=== PATIENT | female | born 1995 | race African-American/Black ===

== ENCOUNTER 2017-06-30 23:01 | Emergency (ER) | payer OTHER ==
[~2017-06-30] VITALS: Ht 157.5 cm; Wt 115.8 kg
[2017-06-30 23:07] VITALS: TEMP 36.7; Ht 157.5 cm; Wt 115.8 kg
--- NOTE | 2017-06-30 23:29 | EMERGENCY ROOM VISIT NOTE ---
History Report prepared by Nora: Jami Gandhi Under the Supervision of: Dr. Josh Lundberg M.D. First contact with patient: 23:14 Chief Complaint: PELVIC PAIN Stated Complaint: PAIN IN UTERINE AREA History of Present Illness The patient is a 22 year old female who presents to the Emergency Room with complaints of waxing and waning uterine pain beginning an hour and a half ago. The patient reports that the pain came on suddenly and she describes the pain as a stabbing sensation. She denies having nausea, vomiting, fevers, diarrhea, abdominal pain, and leg swelling. The patient reports that her last menstrual cycle was last week and denies any chance of and sexually transmitted diseases. She also denies recent injuries and vaginal bleeding. She reports that she took 3 tablets of ibuprofen prior to arrival. The patient states that she is on Metformin because she is diabetic and states that her sugars have been in the 200's lately. The patient also reports that she has PCOS. Source of History: patient Onset: an hour and a half ago Position: other (uterus ) Quality: stabbing Timing: waxes/wanes Associated Symptoms: No fevers, No nausea, No vomiting, No abdominal pain, No diarrhea Note: also denies: leg swelling, vaginal bleeding Review of Systems See HPI for pertinent positives & negatives. A total of 10 systems reviewed and were otherwise negative. Past Medical & Surgical Medical Problems: (1) Diabetes (2) PCOS (polycystic ovarian syndrome) Family History No pertinent family history Social History Smoking Status: Never Smoker Housing Status: lives with roommate Occupation Status: [employer] student Current/Historical Medications Scheduled Metformin Hcl (Glucophage), 500 MG PO DAILY Allergies Coded Allergies: No Known Allergies (Unverified , 07/01/17) Physical Exam Vital Signs Date Time Temp Pulse Resp B/P (MAP) Pulse Ox O2 Delivery O2 Flow Rate FiO2 07/01/17 02:48 79 18 130/71 98 06/30/17 23:07 36.7 84 16 153/90 99 Room Air Physical Exam GENERAL: Patient is well appearing and in no acute distress. HEENT: No acute trauma, normocephalic atraumatic, mucous membranes moist, no nasal congestion, no scleral icterus. NECK: No stridor, no adenopathy, no meningismus, trachea is midline. LUNGS: No dyspnea. Clear to auscultation and equal bilaterally. No wheeze, no rhonchi. HEART: Regular rate and rhythm. No murmurs, rubs, gallops appreciated. ABDOMEN: Soft, mild suprapubic tenderness to palpation, bowel sounds positive, no masses appreciated, no peritonitis. BACK: No midline tenderness, no CVA tenderness EXTREMITIES: Normal motion all extremities, no cyanosis, no edema. NEUROLOGIC: Alert and oriented, no acute motor or sensory deficits, no focal weakness, cranial nerves grossly intact. SKIN: No rash, no jaundice, no diaphoresis. PELVIC: Scant off-white discharge throughout the posterior vaginal wall. Able to visualize bottom portion of cervix which appears unremarkable. Did not visualize strings of IUD, however could not see os. Mild tenderness to palpation over left lower quadrant on bimanual exam. Medical Decision & Procedures ER Provider Diagnostic Interpretation: Radiology results and stated below per my review and [facility]. US PELVIC/ENDOVAG IUD is identified in the lower endometrial cavity. Recommended clinical correlation. Endometrial stripe is within normal limits. No fibroids. Thick- walled cyst in the left ovary with lacelike pattern and peripheral vascularity likely represents a hemorrhagic cyst measuring 3.2 cm. There are small rounded nodules which could represent retracting clot. Recommend follow-up in 6-12 weeks to assess for interval resolution and to exclude endometrioma. No evidence of left ovarian torsion. Normal right ovary. Bladder wall thickening may be related to incomplete distention. Correlate with urinalysis to exclude cystitis. Laboratory Results 06/30/17 23:40 Red Blood Count 4.52, Mean Corpuscular Volume 77.4, Mean Corpuscular Hemoglobin 26.3, Mean Corpuscular Hemoglobin Concent 34.0, Mean Platelet Volume 8.6, Neutrophils (%) (Auto) 46.5, Lymphocytes (%) (Auto) 42.2, Monocytes (%) (Auto) 6.8, Eosinophils (%) (Auto) 3.2, Basophils (%) (Auto) 1.1, Neutrophils # (Auto) 2.60, Lymphocytes # (Auto) 2.36, Monocytes # (Auto) 0.38, Eosinophils # (Auto) 0.18, Basophils # (Auto) 0.06 06/30/17 23:40 Test 06/30/17 23:40 07/01/17 01:36 White Blood Count 5.59 K/uL (4.8-10.8) Red Blood Count 4.52 M/uL (4.2-5.4) Hemoglobin 11.9 g/dL (12.0-16.0) Hematocrit 35.0 % (37-47) Mean Corpuscular Volume 77.4 fL (80-100) Mean Corpuscular Hemoglobin 26.3 pg (25-34) Mean Corpuscular Hemoglobin Concent 34.0 g/dl (32-36) Platelet Count 261 K/uL (130-400) Mean Platelet Volume 8.6 fL (7.4-10.4) Neutrophils (%) (Auto) 46.5 % Lymphocytes (%) (Auto) 42.2 % Monocytes (%) (Auto) 6.8 % Eosinophils (%) (Auto) 3.2 % Basophils (%) (Auto) 1.1 % Neutrophils # (Auto) 2.60 K/uL (1.4-6.5) Lymphocytes # (Auto) 2.36 K/uL (1.2-3.4) Monocytes # (Auto) 0.38 K/uL (0.11-0.59) Eosinophils # (Auto) 0.18 K/uL (0-0.5) Basophils # (Auto) 0.06 K/uL (0-0.2) RDW Standard Deviation 37.9 fL (36.4-46.3) RDW Coefficient of Variation 13.4 % (11.5-14.5) Immature Granulocyte % (Auto) 0.2 % Immature Granulocyte # (Auto) 0.01 K/uL (0.00-0.02) Urine Color YELLOW Urine Appearance CLEAR (CLEAR) Urine pH 7.0 (4.5-7.5) Urine Specific [place] 1.018 (1.000-1.030) Urine Protein NEG (NEG) Urine Glucose (UA) NEG (NEG) Urine Ketones NEG (NEG) Urine Occult Blood NEG (NEG) Urine Nitrite NEG (NEG) Urine Bilirubin NEG (NEG) Urine Urobilinogen NEG (NEG) Urine Leukocyte Esterase NEG (NEG) Urine WBC (Auto) 1-5 /hpf (0-5) Urine RBC (Auto) 0-4 /hpf (0-4) Urine Hyaline Casts (Auto) 0 /lpf (0-5) Urine Epithelial Cells (Auto) 20-30 /lpf (0-5) Urine Bacteria (Auto) NEG (NEG) Urine Test NEG (NEG) Anion Gap 8.0 mmol/L (3-11) Est Creatinine Clear Calc Drug Dose 104.1 ml/min Estimated GFR () 89.6 Estimated GFR (Non- 77.3 BUN/Creatinine Ratio 11.5 (10-20) Calcium Level 8.5 mg/dl (8.5-10.1) Laboratory results as reviewed by me. ED Course 2317: The patient was evaluated in room B11B. A complete history and physical exam was performed. 0227: Reevaluated the patient. She feels good and would like to go home. 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 Discussed results and discharge instructions: She verbalized understanding and agreement. The patient is ready for discharge. Medical Decision Differential: Appendicitis, Ovarian Torsion, Ovarian cyst/rupture, PID, Tubo- ovarian Abscess, Intrauterine , Ectopic , Endometriosis, amongst other pathologies entertained. 22 yr old female arrives for evaluation of acute onset lower pelvic pain which has been improving since motrin use. Exam with some scant discharge in vaginal vault. 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 Pain essentially resolved. Labs OK. UA clear. Not . US shows left ovarian cyst likely hemorrhagic. She has no peritonitis, knows of chronic anemia, and has stable vitals. NSAID treatment and follow up with [employer] as planned in 1 week. Reviewed symptoms requiring RTED. Medication Reconcilliation Current Medication List: was personally reviewed by me Blood Pressure Screening Patient's blood pressure: Elevated blood pressure Blood pressure disposition: Referred to PCP Impression Primary Impression: Hemorrhagic cyst of left ovary Additional Impressions: Anemia Hypertension Scribe Attestation The scribe's documentation has been prepared under my direction and personally reviewed by me in its entirety. I confirm that the note above accurately reflects all work, treatment, procedures, and medical decision making performed by me. Departure Information Dispostion Home / Self-Care Referrals No Doctor, Assigned (PCP) Forms HOME CARE DOCUMENTATION FORM, IMPORTANT VISIT INFORMATION, WORK / SCHOOL INSTRUCTIONS Patient Instructions Cyst Ruptured Ovarian Tx, My [facility] Additional Instructions Of Note: Your blood pressure was elevated during this visit. This is quite common in many people who are being evaluated in the Emergency Department for many reasons. However, it is important that you have your Primary Care Provider recheck your blood pressure and discuss whether treatment will be needed. [facility] elevated blood pressure can lead to strokes, heart attacks, kidney failure amongst other medical issues. If you develop severe headaches, chest pain, weakness in arms or legs, or other concerning symptoms call 911. Problem Qualifiers
[2017-06-30 23:52] LABS: BASO % 1.1 %; BASO ABS # 0.06 K/uL (0-0.2); EOS % 3.2 %; EOS ABS # 0.18 K/uL (0-0.5); HEMOGLOBIN 11.9 g/dL (12.0-16.0); IG# 0.01 K/uL (0.00-0.02); LYMPH % 42.2 %; LYMPH ABS # 2.36 K/uL (1.2-3.4); MEAN CELL VOLUME 77.4 fL (80-100); MEAN CORPUSCULAR HEMOGLOBIN 26.3 pg (25-34); MEAN PLATELET VOLUME 8.6 fL (7.4-10.4); MONO % 6.8 %; MONO ABS # 0.38 K/uL (0.11-0.59); NEUT % 46.5 %; PLATELET COUNT 261 K/uL (130-400); RED CELL DISTRIBUTION WIDTH CV 13.4 % (11.5-14.5); RED CELL DISTRIBUTION WIDTH SD 37.9 fL (36.4-46.3); WHITE BLOOD COUNT 5.59 K/uL (4.8-10.8)
[2017-07-01 00:10] LABS: CALCIUM 8.5 mg/dl (8.5-10.1); CREATININE 1.04 mg/dl (0.60-1.20); POTASSIUM 3.7 mmol/L (3.5-5.1)
[2017-07-01] MEDS ORDERED: GLC/500 PO (00:15)
[2017-07-01 02:48] VITALS: BP 130/71; PULSE 79; O2SAT 98
--- NOTE | 2017-07-01 07:57 | DIAGNOSTIC IMAGING REPORT ---
PELVIC ULTRASOUND CLINICAL HISTORY: sudden onset wax/wane lower pelvic pain, history PCOS COMPARISON STUDY: No previous studies for comparison. TECHNIQUE: Transabdominal and transvaginal sonography of the pelvis was performed. FINDINGS: The uterus measures 6.7 x 2.8 x 4.1 cm. Endometrium measures 6 mm in thickness. Intrauterine device is in place however appears to be low-lying within the lower uterine segment. The right ovary is normal, measuring 3.9 x 1.6 x 2 cm. The left ovary measures 5.7 x 2.9 x 4.1 cm and contains a 3.2 x 2.6 x 2.9 cm hypoechoic lesion with a lace-like appearance. This has an irregular echogenic wall with a few nodular components which may reflect retracting clot. There is no definite color flow within these nodular foci. Color flow within each ovary. IMPRESSION: 1. 3.2 cm hypoechoic left ovarian lesion with imaging characteristics favoring a hemorrhagic cyst. A follow-up pelvic ultrasound in 6 weeks to ensure resolution is recommended. 2. Intrauterine device in place however appears to be within the lower uterine segment. Gynecologic consultation might considered. Electronically signed by: Ti Pizarro M.D. 07/01/2017 7:56 AM Dictated Date/Time: 07/01/2017 7:49 AM
== END 2017-07-01 02:37 | disposition home or self-care (01) ==
LOC: C.EDB 23:03
DX: E28.2 Polycystic ovarian syndrome (principal); D64.9 Anemia, unspecified; I10 Essential (primary) hypertension; E11.9 Type 2 diabetes mellitus without complications; Z97.5 Presence of (intrauterine) contraceptive device; Z79.84 Long term (current) use of oral hypoglycemic drugs